=== PATIENT | female | born 1995 ===

== ENCOUNTER 2017-07-16 14:41 | Emergency (ER) | payer OTHER ==
[2017-07-16 14:43] VITALS: BMI 22.2
[2017-07-16 14:49] VITALS: RESP 18; TEMP 98.3
--- NOTE | 2017-07-16 16:27 | ED PDOC ---
Arrival/HPI - General Chief Complaint: Upper Extremity Problem/Injury Time Seen by Provider: 07/16/17 15:09 Historian: Patient - History of Present Illness Narrative History of Present Illness (Text): 07/16/17 17:01 A 22 year old female presents to the emergency department complaining of two day history of left shoulder pain. Patient denies any trauma, injury, repetitive use. Patient reports she had bursitis in left shoulder when she was 14 years old. Since then patient hasn't seen a specialist. Notes she is right hand dominant. Reports two week history of chronic intermittent rash on top of right and left hands. Notes itchy, red and dry. Her brother has similar rash symptoms in the past. Denies any fever, cough, sore throat or any other complaints at this time. Denies any exposure to acute allergens. Symptom Onset: Sudden Symptom Course: Unchanged Activities at Onset: Rest Context: Home Past Medical History - Provider Review Nursing Documentation Reviewed: Yes - Infectious Disease Hx of Infectious Diseases: None - Musculoskeletal/Rheumatological Other/Comment: L shoulder bursitis - Psychiatric Hx Substance Use: No - Anesthesia Hx Anesthesia: No Family/Social History - Physician Review Nursing Documentation Reviewed: Yes Family/Social History: No Known Family HX Smoking Status: Never Smoked Hx Alcohol Use: No Hx Substance Use: No Allergies/Home Meds Allergies/Adverse Reactions: Allergies Penicillins Allergy (Verified 07/16/17 14:44) RASH Review of Systems - Physician Review All systems were reviewed & negative as marked: Yes - Review of Systems Constitutional: absent: Fevers ENT: absent: Sore Throat Respiratory: absent: Cough Musculoskeletal: Other (left shoulder pain) Skin: Rash (on top of right and left hands) Physical Exam Vital Signs Reviewed: Yes Vital Signs Temp Pulse Resp BP Pulse Ox 07/16/17 16:45 78 18 108/72 98 07/16/17 14:48 98.3 F 83 18 105/67 100 Temperature: Afebrile Blood Pressure: Normal Pulse: Regular Respiratory Rate: Normal Appearance: Positive for: Well-Appearing, Non-Toxic, Comfortable Pain Distress: None Mental Status: Positive for: Alert and Oriented X 3 - Systems Exam Head: Present: Atraumatic, Normocephalic Pupils: Present: PERRL Extroacular Muscles: Present: EOMI Conjunctiva: Present: Normal Mouth: Present: Moist Mucous Membranes Neck: Present: Normal Range of Motion Respiratory/Chest: Present: Clear to Auscultation, Good Air Exchange. No: Respiratory Distress, Accessory Muscle Use Cardiovascular: Present: Regular Rate and Rhythm, Normal S1, S2. No: Murmurs Abdomen: Present: Normal Bowel Sounds. No: Tenderness, Distention, Peritoneal Signs Back: Present: Normal Inspection Upper Extremity: Present: Tenderness (mild tenderness of left shoulder). No: Cyanosis Lower Extremity: Present: Normal Inspection. No: Edema Neurological: Present: GCS=15, CN II-XII Intact, Speech Normal Skin: Present: Rashes (erythematous rash to top of right and left hands) Psychiatric: Present: Alert, Oriented x 3, Normal Insight, Normal Concentration Medical Decision Making ED Course and Treatment: 07/16/17 16:57 Impression: A 22 year old female with left shoulder pain and chronic rash on left and right hands. Plan: -- Reassess and disposition -- XR L shoulder Progress Notes: XR left shoulder: no fracture, no dislocation, as read by PA X-ray results discussed with the patient in great detail. Likely diagnosis of L shoulder pain due to bursitis and eczema discussed with the patient. Shoulder sling applied by PA. On re-evaluation, patient has no other complaints and is in no acute distress. Patient in agreement with plan to be discharged home. Patient is stable for discharge. Patient was instructed to follow up with physician or return if symptoms worsen or new concerning symptoms arise. - RAD Interpretation Radiology Orders: 07/16/17 15:17 SHOULDER LEFT [RAD] Stat - PA / PRUNER / Resident Statement MD/DO has reviewed & agrees with the documentation as recorded. - Scribe Statement The provider has reviewed the documentation as recorded by the Geraldine Blackwell Provider Scribe Attestation: All medical record entries made by the Geraldine were at my direction and personally dictated by me. I have reviewed the chart and agree that the record accurately reflects my personal performance of the history, physical exam, medical decision making, and the department course for this patient. I have also personally directed, reviewed, and agree with the discharge instructions and disposition. Disposition/Present on Arrival - Present on Arrival Any Indicators Present on Arrival: No History of DVT/PE: No History of Uncontrolled Diabetes: No Urinary Catheter: No History of Decub. Ulcer: No History Surgical Site Infection Following: None - Disposition Have Diagnosis and Disposition been Completed?: Yes Diagnosis: Shoulder pain, left, Eczema Disposition: HOME/ ROUTINE Disposition Time: 16:00 Patient Plan: Discharge Condition: STABLE Discharge Instructions (ExitCare): Shoulder Bursitis (ED), Eczema in Children ( ED), Shoulder Pain (ED) Print Language: MONTENEGRIN Additional Instructions: Thank you for letting us take care of you today. You were treated for left shoulder pain, consider bursitis, eczema. The emergency medical care you received today was directed at your acute symptoms. If you were prescribed any medication, please fill it and take as directed. It may take several days for your symptoms to resolve. Return to the Emergency Department if your symptoms worsen, do not improve, or if you have any other problems. Please contact your doctor in 2 days for re-evaluation and follow up / or call one of the physicians/clinics you have been referred to that are listed on the Patient Visit Information form that is included in your discharge packet. Bring any paperwork you were given at discharge with you along with any medications you are taking to your follow up visit. Our treatment cannot replace ongoing medical care by a primary care provider (PCP) outside of the emergency department. Thank you for allowing the [facility] team to be part of your care today. If you had an X-Ray : A Radiologist will review the ED reading if any change in treatment is needed we will contact you. Prescriptions: Hydrocortisone Lilian 0.2% Cr [Westcort] 1 ea TP BID #15 tube Naproxen 500 mg PO BID #30 tab Referrals: [facility] at [facility] [Outside] - Follow up with primary Forms: [employer] (Sami), WORK NOTE, SCHOOL NOTE
[2017-07-16 16:45] VITALS: BP 108/72; PULSE 78; O2SAT 98
--- NOTE | 2017-07-16 16:47 | RAD ---
PROCEDURE: Left Shoulder direct HISTORY: Pain. FINDINGS: BONES: No evidence of acute displaced fracture nor dislocation. JOINTS: Normal. Glenohumeral and acromioclavicular joints preserved. No osteoarthritis. SOFT TISSUES: Normal. OTHER FINDINGS: None. IMPRESSION: No evidence of acute displaced fracture nor dislocation
== END 2017-07-16 16:45 | disposition home or self-care (01) ==
LOC: ED 14:41
DX: M25.512 Pain in left shoulder (principal); L30.9 Dermatitis, unspecified

== ENCOUNTER 2017-11-16 13:50 | Emergency (ER) | payer MEDICAID, OTHER ==
[2017-11-16 13:58] VITALS: BP 112/65; PULSE 96; RESP 18; TEMP 98.6; O2SAT 97; BMI 22.0
--- NOTE | 2017-11-16 14:07 | ED PDOC ---
Arrival/HPI - General Chief Complaint: Flu-like Symptoms Time Seen by Provider: 11/16/17 14:03 Historian: Patient - History of Present Illness Narrative History of Present Illness (Text): 11/16/17 14:04 22yo female with no PMHx who present with 2days history of cough, subjective fever, generalized bodyache, nasal congestion, headache, facial pressure. Notes that she took Tylenol at 0100pm and Nyquil last time. Denies sick contact, chest pain, SOB, diaphoresis, nausea, vomiting, abdominal pain, any other complaint. Past Medical History - Provider Review Nursing Documentation Reviewed: Yes - Infectious Disease Hx of Infectious Diseases: None - Musculoskeletal/Rheumatological Other/Comment: L shoulder bursitis - Gastrointestinal Hx Gastritis: Yes - Psychiatric Hx Substance Use: No - Anesthesia Hx Anesthesia: No Family/Social History - Physician Review Nursing Documentation Reviewed: Yes Family/Social History: Unknown Family HX Smoking Status: Never Smoked Hx Alcohol Use: No Hx Substance Use: No Allergies/Home Meds Allergies/Adverse Reactions: Allergies Penicillins Allergy (Verified 07/16/17 14:44) RASH Review of Systems - Physician Review All systems were reviewed & negative as marked: Yes - Review of Systems Constitutional: Fatigue, Fevers Eyes: Normal ENT: Normal, Sinus Congestion Respiratory: Cough Cardiovascular: Normal Gastrointestinal: Normal Genitourinary Female: Normal Musculoskeletal: Normal Skin: Normal Neurological: Normal Endocrine: Normal Hemo/Lymphatic: Normal Psychiatric: Normal Physical Exam Vital Signs Reviewed: Yes Vital Signs Temp Pulse Resp BP Pulse Ox 11/16/17 13:55 98.6 F 96 H 18 112/65 97 Temperature: Afebrile Blood Pressure: Normal Pulse: Regular Respiratory Rate: Normal Appearance: Positive for: Well-Appearing, Non-Toxic, Comfortable Pain Distress: None Mental Status: Positive for: Alert and Oriented X 3 - Systems Exam Head: Present: Atraumatic, Normocephalic Pupils: Present: PERRL Extroacular Muscles: Present: EOMI Conjunctiva: Present: Normal Mouth: Present: Moist Mucous Membranes Pharnyx: Present: Normal Nose (Internal): Present: Normal Inspection Neck: Present: Normal Range of Motion Respiratory/Chest: Present: Clear to Auscultation, Good Air Exchange. No: Respiratory Distress, Accessory Muscle Use, Wheezes, Decreased Breath Sounds, Rales, Retracting, Rhonchi, Tachypneic Cardiovascular: Present: Regular Rate and Rhythm, Normal S1, S2. No: Murmurs Abdomen: Present: Normal Bowel Sounds. No: Tenderness, Distention, Peritoneal Signs Back: Present: Normal Inspection Upper Extremity: Present: Normal Inspection. No: Cyanosis, Edema Lower Extremity: Present: Normal Inspection. No: Edema Neurological: Present: GCS=15, CN II-XII Intact, Speech Normal Skin: Present: Warm, Dry, Normal Color. No: Rashes Psychiatric: Present: Alert, Oriented x 3, Normal Insight, Normal Concentration Medical Decision Making - Lab Interpretations Lab Results: Lab Results 11/16/17 14:00: Influenza Typ A,B (EIA) Negative for flu a/b - Medication Orders Current Medication Orders: Discontinued Medications Azithromycin (Zithromax) 500 mg PO STAT STA PRN Reason: Protocol Stop: 11/16/17 14:56 Benzonatate (Tessalon Perles) 100 mg PO TID STA Stop: 11/16/17 14:56 Disposition/Present on Arrival - Present on Arrival Any Indicators Present on Arrival: No History of DVT/PE: No History of Uncontrolled Diabetes: No Urinary Catheter: No History of Decub. Ulcer: No History Surgical Site Infection Following: None - Disposition Have Diagnosis and Disposition been Completed?: Yes Diagnosis: URI, acute Disposition: HOME/ ROUTINE Disposition Time: 15:00 Patient Plan: Discharge Condition: STABLE Discharge Instructions (ExitCare): Upper Respiratory Infection (ED) Additional Instructions: Follow up with your doctor Drink plenty of fluid and rest Return to ED for any new or worsening symptoms Prescriptions: Azithromycin [Zithromax] 250 mg PO DAILY #4 tab Benzonatate [Tessalon Perles] 100 mg PO TID #20 sgl Referrals: PCP,NO [Primary Care Provider] - Follow up with primary [facility] [place] - Follow up with primary Forms: [employer] (Maori)
== END 2017-11-16 15:21 | disposition home or self-care (01) ==
LOC: ED 13:50
DX: J06.9 Acute upper respiratory infection, unspecified (principal)

== ENCOUNTER 2018-06-28 06:41 | Emergency (ER) | payer MEDICAID, OTHER ==
[2018-06-28 06:42] VITALS: BMI 22.0
[2018-06-28 06:51] VITALS: RESP 18
--- NOTE | 2018-06-28 07:25 | ED PDOC ---
Arrival/HPI - General Chief Complaint: Female Genitourinary Time Seen by Provider: 06/28/18 07:25 Historian: Patient - History of Present Illness Narrative History of Present Illness (Text): 06/28/18 07:25 A 23 year old female, who is 26 weeks , presents to the emergency department complaining of abdominal pain since earlier this morning. Patient reports she feeling pain after she went to the bathroom at around 5 am this morning. Patient notes this is her first and she has a high risk because the fetus is diagnosed with skeletal dysplasia. Patient also reports feeling a brief levi pain yesterday. Patient denies any fever, chills, shortness of breath, chest pain, diarrhea, hematuria, vaginal bleeding , vaginal discharge, nausea, vomiting, urinary symptoms, back pain, neck pain, headache, dizziness, or any other complaints. Time/Duration: Other (ealrier this morning) Symptom Onset: Sudden Symptom Course: Unchanged Activities at Onset: Light Context: Home Past Medical History - Provider Review Nursing Documentation Reviewed: Yes - Infectious Disease Hx of Infectious Diseases: None - Musculoskeletal/Rheumatological Other/Comment: L shoulder bursitis - Gastrointestinal Hx Gastrointestinal Disorders: Yes Hx Gastritis: Yes - Psychiatric Hx Substance Use: No - Anesthesia Hx Anesthesia: No Family/Social History - Physician Review Nursing Documentation Reviewed: Yes Family/Social History: Unknown Family HX Smoking Status: Never Smoked Hx Alcohol Use: No Hx Substance Use: No Allergies/Home Meds Allergies/Adverse Reactions: Allergies Penicillins Allergy (Verified 05/16/18 19:16) RASH Review of Systems - Physician Review All systems were reviewed & negative as marked: Yes - Review of Systems Constitutional: absent: Fevers, Night Sweats Respiratory: absent: SOB Cardiovascular: absent: Chest Pain Gastrointestinal: Abdominal Pain. absent: Diarrhea, Nausea, Vomiting Genitourinary Female: absent: Dysuria, Hematuria, Vaginal Bleeding, Vaginal Discharge Musculoskeletal: absent: Back Pain, Neck Pain Neurological: absent: Headache, Dizziness Physical Exam Vital Signs Reviewed: Yes Vital Signs Temp Pulse Resp BP Pulse Ox 06/28/18 12:18 98.1 F 70 18 98 06/28/18 11:37 68 18 117/65 99 06/28/18 09:49 71 18 115/71 99 06/28/18 07:41 75 18 113/69 99 06/28/18 06:49 97.0 F L 78 18 111/67 99 Temperature: Hypothermic Blood Pressure: Normal Pulse: Regular Respiratory Rate: Normal Appearance: Positive for: Well-Appearing, Non-Toxic, Comfortable Pain Distress: None Mental Status: Positive for: Alert and Oriented X 3 - Systems Exam Head: Present: Atraumatic, Normocephalic Pupils: Present: PERRL Extroacular Muscles: Present: EOMI Conjunctiva: Present: Normal Mouth: Present: Moist Mucous Membranes Neck: Present: Normal Range of Motion Respiratory/Chest: Present: Clear to Auscultation, Good Air Exchange. No: Respiratory Distress, Accessory Muscle Use Cardiovascular: Present: Regular Rate and Rhythm, Normal S1, S2. No: Murmurs Abdomen: No: Tenderness, Distention, Peritoneal Signs Genitourinary/Pelvic Exam: Present: Other (+gravid uterus). No: Normal External Genitalia, Vaginal Discharge, Vaginal Bleeding, Vaginal Lesions, Adenexal Tenderness, Adenexal Mass, Cervical Motion Tendernes, Cervical os Closed, Odor Back: Present: Normal Inspection Upper Extremity: Present: Normal Inspection. No: Cyanosis, Edema Lower Extremity: Present: Normal Inspection. No: Edema Neurological: Present: GCS=15, CN II-XII Intact, Speech Normal Skin: Present: Warm, Dry, Normal Color. No: Rashes Psychiatric: Present: Alert, Oriented x 3, Normal Insight, Normal Concentration Medical Decision Making ED Course and Treatment: 06/28/18 07:29 Impression: A 23 year old female, who is 26 weeks , presents to the Emergency department complaining of abdominal pain. Plan: -- Urinalysis -- Ultrasound -- Reassess and disposition Prior Visits: Notes and results from previous visits were reviewed. Progress Notes: 06/28/18 11:45 Dictator: Sharan Noel MD Procedure: Ultrasound Impression: Foreshortening of femur length providing gestational discordance for this specific biometric parameter. 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 Otherwise unremarkable biometry. Three-vessel cord documented. Limited anatomic survey. Live intrauterine gestation. Based on femur length, follow-up recommended. Patient with no complaints on re-eval. Results discussed with patient. Advised outpatient OB followup. Rx written for mild UTI. - Lab Interpretations Lab Results: Lab Results 06/28/18 06:53: Urine Color Yellow, Urine Appearance Clear, Urine pH 6.0, Ur Specific [place] >= 1.030, Urine Protein 30 H, Urine Glucose (UA) Negative, Urine Ketones 40 H, Urine Blood Negative, Urine Nitrate Negative, Urine Bilirubin Negative, Urine Urobilinogen 0.2, Ur Leukocyte Esterase Trace H, Urine RBC Negative, Urine WBC 5 - 10, Ur Epithelial Cells 6 - 8, Amorphous Sediment Many, Urine Bacteria Mod - RAD Interpretation Radiology Orders: 06/28/18 07:26 AGE [US] Routine - Scribe Statement The provider has reviewed the documentation as recorded by the Scribe Angy Vickers All medical record entries made by the Scribe were at my direction and personally dictated by me. I have reviewed the chart and agree that the record accurately reflects my personal performance of the history, physical exam, medical decision making, and the department course for this patient. I have also personally directed, reviewed, and agree with the discharge instructions and disposition. Disposition/Present on Arrival - Present on Arrival Any Indicators Present on Arrival: No History of DVT/PE: No History of Uncontrolled Diabetes: No Urinary Catheter: No History of Decub. Ulcer: No History Surgical Site Infection Following: None - Disposition Have Diagnosis and Disposition been Completed?: Yes Diagnosis: UTI (urinary tract infection) during , Vaginal pain Disposition: HOME/ ROUTINE Disposition Time: 12:18 Condition: GOOD Discharge Instructions (ExitCare): Urinary Tract Infection, Adult (DC) Additional Instructions: KATERINA MONREAL, thank you for letting us take care of you today. Your provider was Madison Houser MD and you were treated for ( abdominal pain). The emergency medical care you received today was directed at your acute symptoms. If you were prescribed any medication, please fill it and take as directed. It may take several days for your symptoms to resolve. Return to the Emergency Department if your symptoms worsen, do not improve, or if you have any other problems. Please contact your doctor or call one of the physicians/clinics you have been referred to that are listed on the Patient Visit Information form that is included in your discharge packet. Bring any paperwork you were given at discharge with you along with any medications you are taking to your follow up visit. Our treatment cannot replace ongoing medical care by a primary care provider outside of the emergency department. Thank you for allowing the [facility] team to be part of your care today. If you had an X-Ray or CT scan: A Radiologist will review the ED reading if any change in treatment is needed we will contact you. If you had a blood, urine, or wound culture: It will take several days for the results, if any change in treatment is needed we will contact you. If you had an STI test: It will take 48 hours for the results. Please call after 1 week if you have not heard back. Prescriptions: Nitrofurantoin Macrocrystals [Macrobid] 100 mg PO BID #14 cap Forms: [employer] (Sinhala)
[2018-06-28 08:49] LABS: URINE BILIRUBIN NEGATIVE (NEGATIVE); URINE BLOOD NEGATIVE (NEGATIVE); URINE GLUCOSE (UA) NEGATIVE (NEGATIVE); URINE LEUKOCYTE ESTERASE TRACE Leu/uL (NEGATIVE); URINE PROTEIN 30 mg/dL (<30 mg/dL); URINE UROBILINOGEN 0.2 E.U./dL (<1 E.U./dL)
[2018-06-28 09:09] LABS: URINE APPEARANCE CLEAR (CLEAR); URINE COLOR YELLOW (YELLOW)
[2018-06-28 09:27] LABS: URINE AMORPHOUS SEDIMENT MANY; URINE BACTERIA MOD (NEG); URINE RBC NEGATIVE /hpf (0-2)
--- NOTE | 2018-06-28 11:26 | US ---
Date of service: 06/28/2018 PROCEDURE: HISTORY: vaginal pain/"feeling contractions" Information provided by the medicine technologist suggests a history of skeletal dysplasia COMPARISON: None TECHNIQUE: Standard protocol for this study/examination. FINDINGS: Transverse presentation. Anterior and fundal Placenta. No evidence of abruption or previa Gestational age derived from LMP 25 weeks 5 days. PAVAN 09/26/2018.. Gestational age derived from the following biometric parameters twenty-four weeks 1 day. PAVAN 10/17/2018 Biparietal diameter 6.56 cm. Corresponding gestational age 26 weeks 3 days Head circumference 24.09 cm. Corresponding gestational age 26 weeks 1 day Abdominal circumference 21.04 cm. Twenty-five weeks 4 days Femur length 2.77 cm. Corresponding gestational age 18 weeks 3 days Estimated weight 558 g Calculated cardiac rate 139 beats per min. Closed cervix measuring 6.6 cm IMPRESSION: Foreshortening of femur length providing gestational discordance for this specific biometric parameter. 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 Otherwise unremarkable biometry. Three-vessel cord documented. Limited anatomic survey. Live intrauterine gestation. Based on femur length, follow-up recommended.
[2018-06-28 11:38] VITALS: BP 117/65
[2018-06-28 12:19] VITALS: PULSE 70; TEMP 98.1; O2SAT 98
== END 2018-06-28 12:19 | disposition home or self-care (01) ==
LOC: ED 06:41
DX: O23.42 Unspecified infection of urinary tract in pregnancy, second trimester (principal); Z3A.26 26 weeks gestation of pregnancy; R10.2 Pelvic and perineal pain